=== PATIENT | male | born 1955 | race Asian ===

== ENCOUNTER 2019-02-23 04:30 | Emergency (ER) | payer OTHER ==
[~2019-02-23] VITALS: Ht 165.1 cm; Wt 59.0 kg
[2019-02-23 04:30] VITALS: BP 165/88
--- NOTE | 2019-02-23 04:30 | NUR ---
PT [facility] B[facility]. TAKEN TO BED 6
[2019-02-23] MEDS ORDERED: NACL 0.9% 2,000 ML IV ONE (04:40)
--- NOTE | 2019-02-23 04:40 | NUR ---
PATIENT ASSESSMENT AND TRIAGE COMPLETED AT THIS TIME USING THE [employer] #[id number]. PATIENT LAYING IN BED, BED LOW AND LOCKED WITH SIDE RAILS UP ON BOTH SIDES.
--- NOTE | 2019-02-23 05:00 | NUR ---
PATIENT LABS COLLECTED AND SENT TO LAB
[2019-02-23 05:28] LABS: BASOPHILS # (AUTO) 0.1 K/uL (0.00-0.22); BASOPHILS % (AUTO) 1.1 % (0.0-2.0); EOSINOPHILS # (AUTO) 0.1 K/uL (0-0.4); EOSINOPHILS % (AUTO) 2.2 % (0.0-4.0); HEMOGLOBIN 13.3 g/dL (12.0-18.0); LYMPHOCYTES # (AUTO) 1.2 K/uL (2.0-11.5); LYMPHOCYTES % (AUTO) 22.5 % (20.5-51.1); MEAN CORPUSCULAR HEMOGLOBIN 27 pg (27-31); MEAN CORPUSCULAR HGB CONC 33 g/dL (33-37); MEAN CORPUSCULAR VOLUME 84.3 fL (80-94); MONOCYTES # (AUTO) 0.6 K/uL (0.8-1.0); NEUTROPHILS # (AUTO) 3.3 K/uL (1.8-7.7); NEUTROPHILS % (AUTO) 63.2 % (42.2-75.2); PLATELET COUNT (AUTO) 316 K/uL (140-450); RED BLOOD CELL COUNT(AUTO) 4.86 MIL/uL (4.20-6.10); RED CELL DISTRIBUTION WIDTH 15.5 % (11.6-13.7); WHITE BLOOD COUNT (AUTO) 5.3 K/uL (4.8-10.8)
[2019-02-23 05:43] LABS: CARBON DIOXIDE 23.2 mmol/L (21-32); CHLORIDE 104 mmol/L (98-107); CREATININE 0.8 mg/dL (0.7-1.3); GFR ARICAN-AMERICAN 126 mL/min (>90); GLUCOSE 115 mg/dL (74-106); POTASSIUM 4.2 mmol/L (3.5-5.1); SODIUM SERUM 140 mmol/L (136-145); UREA NITROGEN, BLOOD 20 mg/dL (7-18)
[2019-02-23 05:50] LABS: ALBUMIN 3.7 g/dL (3.4-5.0); ASPARTATE AMINOTRANSFERASE 6 U/L (15-37); TOTAL BILIRUBIN 0.2 mg/dL (0.0-1.0)
--- NOTE | 2019-02-23 06:00 | NUR ---
patient sleeping, chest rise and fall equal, spo2 98% on monitor.
[2019-02-23 06:50] LABS: APPEARANCE,URINE CLEAR (CLEAR); BILIRUBIN,URINE NEGATIVE (NEGATIVE); BLOOD, URINE NEGATIVE (NEGATIVE); COLOR,URINE YELLOW (YELLOW); LEUKOCYTE ESTERASE ,URINE NEGATIVE (NEGATIVE); NITRITE, URINE NEGATIVE (NEGATIVE); UGLUCOSE NEGATIVE (NEGATIVE)
[2019-02-23 06:55] LABS: BARBITURATE, URINE NEG. ng/ml (NEG <=200); BENZODIAZEPINE, URINE NEG. ng/mL (NEG <=200); CANNABINOID, URINE NEG. ng/mL (NEG <=50); COCAINE, URINE NEG. ng/mL (NEG <=300); OPIATE, URINE NEG. ng/mL (NEG <=2000); PHENCYCLIDINE SCREEN,URINE NEG. ng/mL (NEG <=25)
--- NOTE | 2019-02-23 07:00 | NUR ---
Patient sleeping at this time. Easy to wake. No needs stated.
--- NOTE | 2019-02-23 07:29 | NUR ---
Patient sitting up in bed eating breakfast.
--- NOTE | 2019-02-23 09:01 | NUR ---
Called and spoke Ira who is patient's friend and he will picker feeder the patient in x1 hour.
--- NOTE | 2019-02-23 10:03 | NUR ---
PATIENT SLEEPING IN BED. AWAITING RIDE.
[2019-02-23 13:55] VITALS: BP 142/80
--- NOTE | 2019-02-23 13:55 | NUR ---
Patient discharged with v/s stable. Written and verbal after care instructions given and explained. Patient verbalized understanding. Ambulatory with steady gait. All questions addressed prior to discharge. Advised to follow up with PMD.
== END 2019-02-23 13:55 | disposition home or self-care (01) ==
LOC: MED 04:30
DX: R46.89 Other symptoms and signs involving appearance and behavior (principal); Z59.0 Homelessness
CPT/HCPCS: 36415; 80053; 80305; 81003; 85025; 99283; G0482; J7030